=== PATIENT | male | born 1990 | race Two or more races ===

== ENCOUNTER 2017-09-15 13:49 | Emergency (ER) | payer OTHER ==
[2017-09-15 14:28] VITALS: BP 126/73
--- NOTE | 2017-09-15 15:14 | ER Document Report ---
HPI - HPI Patient complains to provider of: Itching to the skin of the penis Onset: Yesterday Onset/Duration: Gradual Quality of pain: No pain Pain Level: Denies Context: Patient complains of pruritus to the penis. Patient reports erythematous rash. No fever, no penile drainage or discharge. Associated Symptoms: denies: Fever Exacerbated by: Denies Relieved by: Denies Similar symptoms previously: No Recently seen / treated by doctor: No - ROS ROS below otherwise negative: Yes Systems Reviewed and Negative: Yes All other systems reviewed and negative - CONSTITUTIONAL Constitutional: DENIES: Fever, Chills - GASTROINTESTINAL Gastrointestinal: DENIES: Abdominal Pain, Nausea - URINARY Urinary: DENIES: Dysuria, Urgency, Frequency - MUSCULOSKELETAL Musculoskeletal: DENIES: Back Pain - DERM Skin Problems: Rash Past Medical History - General Information source: Patient - Social History Smoking Status: Never Smoker Frequency of alcohol use: None Drug Abuse: None Occupation: Active duty Family History: Reviewed & Not Pertinent - Medical History Medical History: Negative Past Surgical History: Reports: Hx Orthopedic Surgery - Immunizations Immunizations up to date: Yes Vertical Provider Document - CONSTITUTIONAL Agree With Documented VS: Yes Exam Limitations: No Limitations General Appearance: WD/WN, No Apparent Distress - INFECTION CONTROL TRAVEL OUTSIDE OF THE [place] IN LAST 30 DAYS: No - HEENT HEENT: Atraumatic, Normocephalic - NECK Neck: Normal Inspection, Supple - RESPIRATORY Respiratory: Breath Sounds Normal, No Respiratory Distress - CARDIOVASCULAR Cardiovascular: Regular Rate, Regular Rhythm - GI/ABDOMEN Gastrointestinal: Abdomen Soft - REPRODUCTIVE Male Genitalia: Abnormal Inspection - Mildly erythematous rash to the glans of penis, no drainage or discharge from the penis, no inguinal lymphadenopathy, no ulcerations, area nontender. [facility] - BACK Back: Normal Inspection. negative: CVA Tenderness-Right, CVA Tenderness-Left - MUSCULOSKELETAL/EXTREMETIES Musculoskeletal/Extremeties: MAEW - NEURO Level of Consciousness: Awake, Alert, Appropriate Motor/Sensory: No Motor Deficit - DERM Integumentary: Warm, Dry, Rash - see above Course - Vital Signs Vital signs: Temp Pulse Resp BP Pulse Ox 98.6 F 83 18 126/73 H 98 09/15/17 14:18 09/15/17 14:18 09/15/17 14:18 09/15/17 14:18 09/15/17 14:18 Discharge - Discharge Clinical Impression: Yeast dermatitis of penis Condition: Stable Disposition: HOME, SELF-CARE Instructions: Nystatin ([facility]) Additional Instructions: Return immediately for any new or worsening symptoms Followup with your primary care provider, call tomorrow to make a followup appointment Keep area clean and dry Prescriptions: Nystatin/Triamcin [Nystatin-Triamcinolone Ointm] 1 applic TP BID #30 oint...g. Referrals: [facility] [Provider Group] - Follow up as needed
== END 2017-09-15 15:24 | disposition home or self-care (01) ==
LOC: ER 13:49
DX: B37.49 Other urogenital candidiasis (principal); L29.9 Pruritus, unspecified; R21 Rash and other nonspecific skin eruption
CPT/HCPCS: 99282